=== PATIENT | male | born 1940 | race Caucasian/White ===

== ENCOUNTER → 2017-03-12 | Outpatient (CLI) | payer MEDICARE, BC ==
[2015-08-18 15:00] VITALS: BP 144/78
[~2017-03-12] MED LIST: ALPR0.5T PO; ALPR1TAB PO; ASPI-482 PO; CALC-53 PO; CALC-67 PO; CARV3.122 PO; CLOP75TA27 PO; FAMO-63 PO; FAMO20TA5 PO; HYDR-965 PO; IBUP-1007 PO; IBUP-1060 PO; ISOS30TA17 PO; ISOS30TA4 PO; LORA10CA PO; LORA10TA68 PO; LOSA25TA4 PO; NITR0.4T SL; NITR0.4T6 SL; PANT40TA5 PO; SIMV10TA PO; VITA1CAP PO; WARF6TAB49 PO; WARF6TAB7 PO; WARF7.5T48 PO; WARF7.5T6 PO
--- NOTE | 2017-03-12 13:48 | CARD ---
APPROVED REPORT EXAM: Two-dimensional and M-mode echocardiogram with Doppler and color Doppler. Other Information Quality : Average Rhythm : NSR INDICATION Atrial Fibrillation 2D DIMENSIONS RVDd3.1 (2.9-3.5cm)Left Atrium(2D)3.9 (1.6-4.0cm) IVSd1.3 (0.7-1.1cm)Aortic Root(2D)2.9 (2.0-3.7cm) LVDd4.2 (3.9-5.9cm)LVOT Diameter2.2 (1.8-2.4cm) PWd1.3 (0.7-1.1cm)LVDs2.8 (2.5-4.0cm) FS (%) 32.6 %SV47.2 ml LVEF(%)61.3 (>50%) Aortic Valve AoV Peak Hitesh.130.2cm/sAoV VTI26.3cm AO Peak GR.6.8mmHgLVOT Peak Hitesh.95.4cm/s LVOT VTI 22.41cmAO Mean GR.3mmHg MICHAELA (VMAX)2.23ay8OZN (VTI)3.12cm2 AI P 1/2 Kzrg162jd Mitral Valve MV E Eagsjnrs52.8cm/sMV E Peak Gr.116mmHg MV DECEL MZBI872pmHR A Ohhyygcc14.7cm/s MV YBI67wyH/A Ratio1.0 MV A Ktolgcau463swFKW (PHT)3.70cm2 TDI E/Lateral E'8.9E/Medial E'11.3 Pulmonary Valve PV Peak Sietmdbn358.1cm/sPV Peak Grad.4mmHg RVOT VTI19.8cm Tricuspid Valve TR P. Azmtetcr999tu/sRAP XKWREPVV2xzYb TR Peak Gr.19ljVzMJWC16ejUv Pulmonary Vein S1 Zmpijxcj24.3cm/sD2 Jdsyotrt68.1cm/s LEFT VENTRICLE The left ventricle is normal size. There is borderline to mild concentric left ventricular hypertroph y. Left ventricle systolic function is normal. The Ejection Fraction is 60-65%. There is normal LV se gmental wall motion. The left ventricular diastolic function and filling is normal for age. There is no ventricular septal defect visualized. RIGHT VENTRICLE The right ventricle is normal size. The right ventricular systolic function is normal. ATRIA The left atrium size is normal. The right atrium size is normal. The interatrial septum is intact wit h no evidence for an atrial septal defect or patent foramen ovale as noted on 2-D or Doppler imaging. AORTIC VALVE The aortic valve is calcified but opens well. The aortic valve is trileaflet. Doppler and Color Flow revealed mild aortic regurgitation. There is no significant aortic valvular stenosis. MITRAL VALVE The mitral valve is normal in structure and function. There is no mitral valve stenosis. Doppler and Color Flow revealed mild mitral regurgitation. TRICUSPID VALVE The tricuspid valve is normal in structure and function. Doppler and Color Flow revealed mild tricusp id regurgitation. There is no tricuspid valve stenosis. PULMONIC VALVE The pulmonic valve is not well visualized. Doppler and Color Flow revealed no pulmonic valvular regur gitation. There is no pulmonic valvular stenosis. GREAT VESSELS The aortic root is normal in size. Normal pulmonary venous flow (Doppler). The IVC is normal in size and collapses >50% with inspiration. PERICARDIAL EFFUSION There is no evidence of significant pericardial effusion. Critical Notification Critical Value: No <Conclusion> Left ventricle systolic function is normal. The Ejection Fraction is 60-65%. There is normal LV segmental wall motion. Mild aortic regurgitation. Mild mitral regurgitation. Mild tricuspid regurgitation. There is no evidence of significant pericardial effusion.
== END | disposition home or self-care (01) ==
LOC: ECHO 12:33
PROVIDERS: ATTEND Internal Medicine Cardiovascular Disease
DX: I48.0 Paroxysmal atrial fibrillation (principal); I08.3 Combined rheumatic disorders of mitral, aortic and tricuspid valves
CPT/HCPCS: 93306

== ENCOUNTER → 2017-08-27 | Day surgery (SDC) | payer MEDICARE, BC ==
[~2017-08-27] MED LIST changes: +CALC-31 PO; -CALC-67 PO; -CLOP75TA27 PO; +CLOP75TA57 PO; -ISOS30TA17 PO; +ISOS30TA19 PO; +IV RINGERS,LACTATED 1000ML 1,000 ML IV SCH; +LIDOCAINE 1% PF 2 ML VIAL. ID PRN; +LIDOCAINE 2% PF Vial for OR 5 ML VIAL. ONE; +MIDAZOLAM HCL/PF 2 MG/2 ML VIAL. IV PRN; +NITR0.4T22 SL; -NITR0.4T6 SL; +PROPOFOL 20 ML IV ONE; +fentaNYL PF VIAL 100 MCG/2 ML VIAL IV PRN
[2017-08-27 13:30] VITALS: BP 130/64
--- NOTE | 2017-08-28 10:47 | PATHOLOGY ---
PATHOLOGY REPORT * * * * * * * * FINAL DIAGNOSIS: A. Colonic mucosa "transverse colon polyp biopsy" - Tubular adenoma. - There is no evidence of high-grade dysplasia or malignancy. B. Colonic mucosa "descending colon polyp biopsy": - Tubular adenoma. - There is no evidence of high-grade dysplasia or malignancy. C. Colonic mucosa "sigmoid colon polyp biopsy": - Hyperplastic polyp. - There is no evidence of adenomatous change, high-grade dysplasia or malignancy. (SHA:pit; 08/28/2017) REPORT ELECTRONICALLY SIGNED BY: Kirill De Oliveira M.D. DATE/TIME: 08/28/2017 10:47 * * * * * * * * GROSS PATHOLOGY: A. Received in formalin labeled "Fausto Andersen, transverse colon polyp, BX," is a segment of trivedi soft tissue measuring 0.5 cm in maximum dimension. The specimen is submitted entirely in cassette A1. B. Received in formalin labeled "Fausto Andersen, descending colon polyp," are 2 segments of trivedi soft tissue measuring 0.6 x 0.5 x 0.5 cm in aggregate dimensions and ranging from 0.3 to 0.5 cm in maximum dimension. The specimen is submitted entirely in cassette B1. C. Received in formalin labeled "Fausto Andersen, sigmoid colon polyp," is a segment of trivedi soft tissue measuring 0.4 cm in maximum dimension. The specimen is submitted entirely in cassette C1. (TSD; 08/27/2017) INITIAL CPT CODE(S): A; 32665 B; 48935 C; 24867 Professional services performed [place] [address] Technical services performed by [facility] at [address] [place] [address], [facility] [address] [address]. SPECIMEN(S) RECEIVED: A.Transverse colon polyp B.Descending colon polyp C.Sigmoid colon polyp CLINICAL HISTORY: Colon screening; polyps PATIENT: FAUSTO ANDERSEN /AGE: 11 1940 (Age: 76) PATIENT #: [id number] ALT CASE #: SPECIMEN COLLECTION DATE: 08/27/2017 SPECIMEN RECEIVED DATE: 08/27/2017 [facility] - [address] [place] [address] - PHONE: [phone] * * * END OF REPORT * * *
== END | disposition home or self-care (01) ==
LOC: ENDOS 11:11
PROVIDERS: ATTEND Internal Medicine Gastroenterology
DX: D12.3 Benign neoplasm of transverse colon (principal); D12.4 Benign neoplasm of descending colon; D12.5 Benign neoplasm of sigmoid colon; K64.0 First degree hemorrhoids; I48.91 Unspecified atrial fibrillation; I10 Essential (primary) hypertension; E78.00 Pure hypercholesterolemia, unspecified; M19.91 Primary osteoarthritis, unspecified site; F41.9 Anxiety disorder, unspecified; Z87.01 Personal history of pneumonia (recurrent); Z90.49 Acquired absence of other specified parts of digestive tract; Z87.442 Personal history of urinary calculi; Z88.6 Allergy status to analgesic agent; Z88.0 Allergy status to penicillin; Z88.2 Allergy status to sulfonamides
CPT/HCPCS: 45385; 88305; J2704; J2001

== ENCOUNTER → 2018-04-05 | Outpatient (CLI) | payer MEDICARE, BC ==
[2018-04-05] MEDS: REGADENOSON 0.4 MG/5 ML DISP.SYRIN. IV (11:14)
== END | disposition home or self-care (01) ==
LOC: NM 09:05
DX: I25.10 Atherosclerotic heart disease of native coronary artery without angina pectoris (principal); I10 Essential (primary) hypertension; E78.5 Hyperlipidemia, unspecified; E78.00 Pure hypercholesterolemia, unspecified; I25.2 Old myocardial infarction; Z87.442 Personal history of urinary calculi
CPT/HCPCS: 78452; 93017; 96374; 96375; 96376; A9500; J2785

== ENCOUNTER 2019-02-01 11:53 | Inpatient (IN) | payer MEDICARE, BC ==
[~2019-02-01] VITALS: Ht 170.2 cm; Wt 8.8 kg
[~2019-02-01 11:53] MED LIST changes: +CARV3.1210 PO; -CARV3.122 PO; +HYDR-3165 PO; -HYDR-965 PO; -IV RINGERS,LACTATED 1000ML 1,000 ML IV SCH; -LIDOCAINE 1% PF 2 ML VIAL. ID PRN; -LIDOCAINE 2% PF Vial for OR 5 ML VIAL. ONE; -LOSA25TA4 PO; +LOSA25TA54 PO; -MIDAZOLAM HCL/PF 2 MG/2 ML VIAL. IV PRN; -PROPOFOL 20 ML IV ONE; +WARF6TAB47 PO; -WARF6TAB7 PO; +WARF7.5T45 PO; -WARF7.5T6 PO; -fentaNYL PF VIAL 100 MCG/2 ML VIAL IV PRN
[2019-02-01 12:48] VITALS: BP 175/75
[2019-02-01 15:01] VITALS: BP 138/57
[2019-02-01] MEDS ORDERED: IOHEXOL 300 MG/ML 100ML VIAL. ONE ×3 (15:45→17:04)
[2019-02-01] MEDS ORDERED: LIDOCAINE 1% PF 2 ML VIAL. ONE (15:45)
[2019-02-01] MEDS ORDERED: MIDAZOLAM HCL/PF 2 MG/2 ML VIAL. ONE ×2 (15:52→16:37)
[2019-02-01] MEDS ORDERED: HEPARIN for IV BOLUS 10,000 UNIT/10 ML VIAL. ONE (15:52)
[2019-02-01] MEDS ORDERED: NITROGLYCERIN 200 MCG/2 ML SYRINGE FOR CATH/VASC LAB. ONE ×2 (15:52→17:07)
[2019-02-01] MEDS ORDERED: fentaNYL PF VIAL 100 MCG/2 ML VIAL ONE ×2 (15:52→16:37)
[2019-02-01] MEDS ORDERED: VERAPAMIL 5 MG/2 ML VIAL. ONE (15:52)
[2019-02-01] MEDS ORDERED: BIVALIRUDIN 250 MG VIAL. IV ONE ×2 (16:16→16:30)
[2019-02-01] MEDS ORDERED: fentaNYL PF VIAL 100 MCG/2 ML VIAL IV ONE (16:30)
[2019-02-01] MEDS ORDERED: MIDAZOLAM HCL/PF 2 MG/2 ML VIAL. IV ONE (16:30)
[2019-02-01] MEDS ORDERED: CONTRAST GIVEN. MC PRN (16:30)
[2019-02-01] MEDS ORDERED: VERAPAMIL 5 MG/2 ML VIAL. IART ONE (16:30)
[2019-02-01] MEDS ORDERED: NITROGLYCERIN 200 MCG/2 ML SYRINGE FOR CATH/VASC LAB. IART ONE (16:30)
[2019-02-01] MEDS ORDERED: IOHEXOL 300 MG/ML 100ML VIAL. IART ONE (16:30)
[2019-02-01] MEDS ORDERED: HEPARIN for IV BOLUS 10,000 UNIT/10 ML VIAL. IART ONE (16:30)
[2019-02-01] MEDS ORDERED: LIDOCAINE 1% PF 2 ML VIAL. INJ ONE (16:30)
[2019-02-01] MEDS ORDERED: LIDOCAINE 1% Multi-Dose 20 ML VIAL. ONE (16:43)
[2019-02-01] MEDS ORDERED: NITROGLYCERIN 200 MCG/2 ML SYRINGE FOR CATH/VASC LAB. ICAR ONE (17:15)
[2019-02-01 17:28] VITALS: BP 151/65
[2019-02-01] MEDS ORDERED: LIDOCAINE 1% Multi-Dose 20 ML VIAL. INJ ONE (17:30)
[2019-02-01] MEDS ORDERED: IV 1/2 NORMAL SALINE 1,000 ML IV SCH (17:34)
--- NOTE | 2019-02-01 17:34 | PDOC ---
MODERATE SEDATION ASSESSMENT RISKS/ALTERNATIVES Risks/Alternatives Risks and alternatives of this type of sedation and procedure discussed with: RISK/ALTERNATIVES: Patient H & P ON CHART H & P H & P on chart and reviewed for co-morbid conditions and appropriate labs. H&P ON CHART: Yes STATUS PREG STATUS ASSESSED: N/A MEDS/ALLERGIES REVIEWED Meds/Allergies Reviewed Medications and Allergies including time and route of recently administered narcotics and sedatives. MEDS/ALLERGIES REVIEWED: Yes ASA RATING ASA RATING: III AIRWAY ASSESSMENT Airway Assessment Airway patency, oral function limitations, presence of caps, crowns, dentures, partials, and ability to extend neck assessed. AIRWAY ASSESSMENT: Yes MALLAMPATI SCORE MALLAMPATI SCORE: II PRE-SEDATION ASSESSMENT PRE-SEDATION ASSESSMENT: Yes NICOLE CARIAS MD Feb 01, 2019 17:34
[2019-02-01] MEDS ORDERED: NITROGLYCERIN SUBLINGUAL 0.4 MG BOTTLE OF 25. SL PRN (17:45)
[2019-02-01] MEDS ORDERED: MORPHINE SULFATE 4 MG/ML VIAL. IV PRN (18:30)
[2019-02-01 19:25] VITALS: BP 144/90
[2019-02-01 23:00] VITALS: BP 145/69
[2019-02-02 03:15] VITALS: BP 158/67
[2019-02-02 07:00] VITALS: BP 194/84
[2019-02-02] MEDS ORDERED: ASPIRIN ENTERIC COATED 81 MG TABLET.DR. PO SCH (08:00)
[2019-02-02] MEDS ORDERED: CLOPIDOGREL BISULFATE 75 MG TABLET PO SCH (08:00)
[2019-02-02 09:01] LABS: BASO % 0 % (0-3); EOS # 0.1 x10^3/uL (0.0-0.7); EOS % 2 % (0-3); HEMATOCRIT 46.7 % (39.0-53.0); HEMOGLOBIN 15.6 g/dL (13.0-17.5); LYMPH # 0.8 x10^3/uL (1.0-4.8); LYMPH % 12 % (24-48); MEAN CORPUSCULAR HEMOGLOBIN 32 pg (25-35); MEAN CORPUSCULAR HGB CONC 34 g/dL (31-37); MEAN CORPUSCULAR VOLUME 95 fL (79-100); MONO # 0.4 x10^3/uL (0.0-1.1); MONO % 7 % (0-9); NEUT # 5.2 x10^3uL (1.8-7.7); NEUT % 80 % (31-73); PLATELET COUNT 136 x10^3/uL (140-400); RED BLOOD COUNT 4.89 x10^6/uL (4.30-5.70); RED CELL DISTRIBUTION WIDTH 14.2 % (11.5-14.5); WHITE BLOOD COUNT 6.5 x10^3/uL (4.0-11.0)
[2019-02-02 09:04] LABS: CREATININE 0.9 mg/dL (0.7-1.3); GFR 81.4; POTASSIUM 3.5 mmol/L (3.5-5.1)
--- NOTE | 2019-02-02 09:58 | NUR ---
SS following for discharge planning. SS reviewed pt chart. Pt is from home and is currently on room air. No discharge needs noted at this time. SS will continue to follow for discharge planning.
--- NOTE | 2019-02-02 10:29 | PDOC ---
JUAN BAZAN DRAFTER TOOL DESIGN 02/02/19 1029: CARDIO Progress Notes Date and Time Date of Service 02/02/2019 Time of Evaluation 1015 Subjective Subjective: No Chest Pain, No shortness of breath, No Palpitations Vitals Vitals Vital Signs Date Time Temp Pulse Resp B/P (MAP) Pulse Ox O2 Delivery O2 Flow Rate FiO2 02/02/19 07:00 97.9 72 18 194/84 (120) 95 Room Air 97.9 02/01/19 18:50 2.0 Weight Weight [ ] Stability Assessment Stability Assess.: estim. time of instab. Input and Output Intake and Output Intake and Output 02/02/19 07:00 Intake Total 300 ml Output Total 1100 ml Balance -800 ml Intake Oral 300 ml Output Urine Total 1100 ml # Voids 2 Laboratory Labs Laboratory Tests Test 02/02/19 08:40 White Blood Count 6.5 x10^3/uL (4.0-11.0) Red Blood Count 4.89 x10^6/uL (4.30-5.70) Hemoglobin 15.6 g/dL (13.0-17.5) Hematocrit 46.7 % (39.0-53.0) Mean Corpuscular Volume 95 fL (79-100) Mean Corpuscular Hemoglobin 32 pg (25-35) Mean Corpuscular Hemoglobin Concent 34 g/dL (31-37) Red Cell Distribution Width 14.2 % (11.5-14.5) Platelet Count 136 x10^3/uL (140-400) Neutrophils (%) (Auto) 80 % (31-73) Lymphocytes (%) (Auto) 12 % (24-48) Monocytes (%) (Auto) 7 % (0-9) Eosinophils (%) (Auto) 2 % (0-3) Basophils (%) (Auto) 0 % (0-3) Neutrophils # (Auto) 5.2 x10^3uL (1.8-7.7) Lymphocytes # (Auto) 0.8 x10^3/uL (1.0-4.8) Monocytes # (Auto) 0.4 x10^3/uL (0.0-1.1) Eosinophils # (Auto) 0.1 x10^3/uL (0.0-0.7) Basophils # (Auto) 0.0 x10^3/uL (0.0-0.2) Sodium Level 138 mmol/L (136-145) Potassium Level 3.5 mmol/L (3.5-5.1) Chloride Level 105 mmol/L (98-107) Carbon Dioxide Level 23 mmol/L (21-32) Anion Gap 10 (6-14) Blood Urea Nitrogen 13 mg/dL (8-26) Creatinine 0.9 mg/dL (0.7-1.3) Estimated GFR (Cockcroft-Gault) 81.4 Glucose Level 119 mg/dL (70-99) Calcium Level 8.0 mg/dL (8.5-10.1) Physical Exam HEENT: Neck Supple W Full Motion Chest: Symmetric LUNGS: Clear to Auscultation Heart: RRR (SR) Abdomen: Soft N/T Extremities: No Calf Tenderness Neurology: alert, oriented, follow commands Other Exams right groin arteriotomy site intact, no swelling or erythema, neurovascular status to bilateral LE intact. Assessment Assessment NSTEMI: S/P PCI/DEBBIE to LAD PAFIB SR HTN: controlled HLP Recommendations 1. Lipids well controlled, continue zocor 2. Encouraged cardiac rehab 3. ASA 81 plavix and coumadin DC ASA after a month 4. TTE today prior to DC 5. Follow up in 4 weeks NICOLE CARIAS MD 02/02/19 2131: CARDIO Progress Notes Assessment Assessment Patient seen and examined. Agree with VP [employer]'s assessment and plan. s/p PCI/DEBBIE to LAD yesterday, chest pain free. LCX stent patent. Continue DAPT for one month and stop aspirin after that. PAF maintaining SR. Continue warfarin for stroke prophylaxis. Follow up in one month. JUAN BAZAN APRN Feb 02, 2019 10:29 NICOLE CARIAS MD Feb 02, 2019 21:31
[2019-02-02] MEDS ORDERED: LABETALOL 20 MG/4 ML DISP.SYRIN. IVP PRN (10:30)
[2019-02-02 10:41] LABS: PROTHROMBIN TIME PATIENT 20.5 SEC (11.7-14.0)
[2019-02-02 10:57] LABS: CHOLESTEROL/HDL RATIO 2.4
[2019-02-02 11:00] VITALS: BP 149/77
--- NOTE | 2019-02-02 11:44 | HP ---
ADMIT DATE: HISTORY OF PRESENT ILLNESS: The patient is a 78-year-old male patient with a known history of coronary artery disease with a prior PCI with stent deployment to the left circumflex artery, his nuclear stress test done last year showed fixed defect and josiah-infarct ischemia; hypertension; atrial fibrillation and hyperlipidemia, who came to the Emergency Room of [facility] complaining of aching down in the sides of his both arms and mild chest pressure consistent with his prior angina. He reports significant decrease in functional capacity over the last 12 months and discomfort off and on over the last week. He stated that his discomfort occurs after exertion, but not as bad during exertion. He denies congestive symptoms, lightheadedness or syncope. He reports anxiety and increased stress that he thinks is contributing to his stress. He was admitted to [facility]. He was extensively evaluated in the Emergency Room and his EKG showed that he was in sinus rhythm with early transition, inferior wall myocardial infarction, age undetermined. No acute ischemic changes. However, his troponin has risen from 0.017 to 0.120 and therefore, a decision was made to transfer him to [facility] for cardiac catheterization if necessary and revascularization. PAST MEDICAL HISTORY: Significant for coronary artery disease, status post PCI with stent deployment; paroxysmal atrial fibrillation; hyperlipidemia; hypertension; gastroesophageal reflux disease; vertigo; varicose veins and history of pneumonia. PAST SURGICAL HISTORY: Significant for cholecystectomy, hernia repair, pyloric stenosis dilatation, basal cell carcinoma removal, prostatectomy and PCI with stent deployment. FAMILY HISTORY: Positive for cancer. SOCIAL HISTORY: He is , lives with his . He does not smoke, drink alcohol or use any recreational drugs. ALLERGIES: HE IS ALLERGIC TO PENICILLIN, SULFA DRUGS, CODEINE AND OXYCODONE. MEDICATIONS: He is on the following home medications: He is on loratadine 10 mg once a day; warfarin 6 mg, alternating with 7.5 mg; Plavix 75 mg once a day; simvastatin 10 mg at bedtime and nitroglycerin 0.4 mg sublingually every 5 minutes x 3. He is on carvedilol 3.125 mg twice a day, losartan potassium 25 mg once a day, aspirin 81 mg once a day, ibuprofen 600 mg every 6 hours as needed, alprazolam 1 mg p.o. daily and alprazolam 0.5 mg at bedtime. He is on calcium carbonate with vitamin D one tablet once a day, famotidine 20 mg 3 times a day and vitamin B complex 1 tablet once a day. REVIEW OF SYSTEMS: As per history of present illness. PHYSICAL EXAMINATION: GENERAL: On arrival to the Emergency Room, he looked well and was clearly in no apparent respiratory distress. No pallor, jaundice or cyanosis from thyromegaly. No jugular venous distention. No lower limb edema. VITAL SIGNS: His heart rate was 82, blood pressure was 155/69, temperature was 97.8, respiratory rate was 20 and oxygen saturation was 96%. HEENT: Examination of the head, eyes, ears, nose and throat showed normocephalic, atraumatic. NECK: Supple. HEART: Showed normal first and second heart sounds. No gallop, rub or murmur. CHEST: Clear to auscultation. No crepitation or rhonchi. ABDOMEN: Distended, soft and nontender. NEUROLOGIC: He was awake, alert, responding appropriately. All cranial nerves intact. He moved extremities without difficulty, ambulated without assistance or assistive devices. LABORATORY DATA: His lab work showed that his white cell count was 5200, hemoglobin was 17.6, hematocrit was 51, MCV was 95 and platelet count of 162,000. His prothrombin time was 23.3, INR of 2.4 and aPTT was 35. His serum D-dimer was less than 0.19 mg/dL. Sodium 140, potassium 3.7, chloride 106, bicarbonate 26, anion gap of 8, BUN 19, creatinine 0.9, estimated GFR was 81 mL per minute, his glucose was 123 and calcium was 8.8. Magnesium was 2.1. Total bilirubin, AST, ALT and alkaline phosphatase were normal. His CK was 89. Initial troponin was less than 0.017, second one was 0.120. His total protein was 6.6. Albumin was 3.7. Lipase was 153. His urinalysis was essentially unremarkable. Urine was clear with a pH of 6.5, specific gravity of 1.015. The urine was negative for protein. There was a small amount of glucose, negative for blood, nitrite or bilirubin. The urine was negative for leukocyte esterase. There are no rbc's, no wbc's and no bacteria. The toxic screen was negative. His chest x-ray showed no radiographic evidence of acute cardiopulmonary disease. His EKG was sinus rhythm, early transition, inferior wall myocardial infarction, age undetermined. No acute ischemic changes. ASSESSMENT AND PLAN: The patient was diagnosed with an ST-segment elevation and known 3-vessel coronary artery disease, coming with chest pain consistent with prior angina and progressive over the last year. The patient was transferred to [facility] for cardiac catheterization to evaluate for progression of coronary artery disease, hypertension, hyperlipidemia and paroxysmal atrial fibrillation. DEBRA EVANS MD DR: MARCELO/johnny JOB#: [id number] / [id number]
--- NOTE | 2019-02-02 11:48 | CARD ---
MR#: [id number] Date of Study: 02/02/2019 Ordering Physician: JUAN BAZAN, Referring Physician: DEBRA EVANS Tech: Eli Rachel BRITTANY APPROVED REPORT EXAM: Two-dimensional and M-mode echocardiogram with Doppler and color Doppler. Other Information Quality : GoodHR: 60bpm Rhythm : NSR INDICATION CAD 2D DIMENSIONS RVDd3.1 (2.9-3.5cm)Left Atrium(2D)4.3 (1.6-4.0cm) IVSd2.0 (0.7-1.1cm)Aortic Root(2D)3.0 (2.0-3.7cm) LVDd3.6 (3.9-5.9cm)LVOT Diameter2.1 (1.8-2.4cm) PWd0.8 (0.7-1.1cm)LVDs2.1 (2.5-4.0cm) FS (%) 41.1 %SV40.1 ml LVEF(%)70.0 (>50%) M-Mode DIMENSIONS Left Atrium(MM)4.47 (2.5-4.0cm)Aortic Root3.50 (2.2-3.7cm) Aortic Valve AoV Peak Hitesh.178.8cm/sAoV VTI36.7cm AO Peak GR.12.8mmHgLVOT VTI 17.82cm AO Mean GR.7mmHgAVA (VTI)1.70cm2 AI P 1/2 Hexf529lg Mitral Valve MV E Fnmgxwsk22.0cm/sMV E Peak Gr.103mmHg MV DECEL [id number] A Zwayawri43.3cm/s E/A Ratio1.1MV A Bmjlctpt576ax TDI Lateral E' P. V8.43cm/sMedial E' P. V6.24cm/s E/Lateral E'9.6E/Medial E'13.0 Tricuspid Valve TR P. Wxnusfsv577no/sRAP SPRZQNJN2qnFg TR Peak Gr.78qfGwANAS68ocDf LEFT VENTRICLE The left ventricle is normal size. Proximal septal thickening is noted. The left ventricular systolic function is normal and the ejection fraction is within normal range. The Ejection Fraction is 60-65% . There is normal LV segmental wall motion. Transmitral Doppler flow pattern is Grade I-abnormal rela xation pattern. RIGHT VENTRICLE The right ventricle is mildly dilated. There is normal right ventricular wall thickness. The right ve ntricular systolic function is normal. ATRIA The left atrium is mildly dilated. The right atrium size is normal. The interatrial septum is intact with no evidence for an atrial septal defect or patent foramen ovale as noted on 2-D or Doppler imagi ng. AORTIC VALVE The aortic valve is trileaflet. The aortic valve is mildly calcified. Doppler and Color Flow revealed mild to moderate aortic regurgitation. There is no significant aortic valvular stenosis. MITRAL VALVE The mitral valve is thickened but opens well. There is no evidence of mitral valve prolapse. There is no mitral valve stenosis. Doppler and Color-flow revealed mild mitral regurgitation. TRICUSPID VALVE The tricuspid valve is normal in structure and function. Doppler and Color Flow revealed trace to mil d tricuspid regurgitation. The PA pressure was estimated at 33 mmHg. There is no tricuspid valve prol apse or vegetation. There is no tricuspid valve stenosis. PULMONIC VALVE Doppler and Color Flow revealed no pulmonic valvular regurgitation. There is no pulmonic valvular pérez nosis. GREAT VESSELS The aortic root is normal in size. The ascending aorta is normal in size. The IVC is normal in size a nd collapses >50% with inspiration. PERICARDIAL EFFUSION There is no evidence of significant pericardial effusion. Critical Notification Critical Value: No <Conclusion> The left ventricular systolic function is normal and the ejection fraction is within normal range. Th e Ejection Fraction is 60-65%. There is normal LV segmental wall motion. Doppler and Color Flow revealed mild to moderate aortic regurgitation. Doppler and Color Flow revealed trace to mild tricuspid regurgitation. The PA pressure was estimated at 33 mmHg. Signed by : Sriram Murrell, Electronically Approved : 02/02/2019 11:48:04
--- NOTE | 2019-02-02 15:58 | NUR ---
Discharge Note: JARRET DINH Discharge instructions and discharge home medications reviewed with Patient and a copy given. All questions have been answered and understanding verbalized. The following instructions and handouts were given: Discontinued iv lines: catheter intact. Patient discharged home with spouse and daughter ambulating under own power.
[2019-02-02] MEDS ORDERED: CARVEDILOL 3.125 MG TABLET. PO SCH (16:00)
--- NOTE | 2019-02-02 17:26 | CARD ---
MR#: [id number] Date of Study: 02/01/2019 Ordering Physician: DEBRA EVANS, Referring Physician: DEBRA EVANS Tech: RT Adiel (R) APPROVED REPORT Technologist: RT Adiel (R) Nurse: Grace Woodard Procedure(s) performed: 1. Left heart catheterization and selective coronary angiography 2. Successful, takes PCI/drug eluting stent placement to the left anterior descending artery Moderate Sedation: 84 min INDICATION The indication(s) include : non-STEMI . PROCEDURE NARRATIVE After explaining the risks, benefits and alternative options, informed consent was obtained from ewelina ent. Patient was brought to the cardiac Engineering Group Leader and right wrist was prepped and draped in the usual fashion after confirming a positive modified James's test. Arterial access was obtained in the righ t radial artery and a 6 Swiss sheath was inserted. After initial attempts to engage the coronary art eries with 6 Swiss Neeraj catheter were unsuccessful, the left main coronary artery was engaged with a 5 Swiss JL 3.5 catheter and selective angiography was performed. 5 Swiss JR4 catheter was used t o perform selective angiography of the right coronary artery. LVEDP and transaortic gradients remeasu red. The following findings were noted. FINDINGS 1. Hemodynamics: Left ventricular end-diastolic pressure of 20 mmHg. No pullback gradient across th e aortic valve. 2. Coronary angiography: a. The left main coronary artery arose from the left sinus of Valsalva, gave rise to the left anteri or descending and left circumflex arteries and showed calcified 30% stenosis involving the distal seg ment. b. The left anterior descending artery showed 90% stenosis in the proximal segment. The very distal segment showed 70-80% stenosis which was described in prior cardiac catheterization. c. The left circumflex artery showed 50% stenosis in the ostial segment, patent stent in the proxima l segment. The first obtuse marginal branch which is a small-caliber vessel showed 90% stenosis in th e ostial segment. d. The right coronary artery was a small-caliber vessel that showed chronic total occlusion in the m idsegment with bridging collaterals. This was described in prior cardiac catheterization. INTERVENTION Initial attempts to engage the left main coronary artery using 6 Swiss XB 3.5 guide catheter were un successful due to severe radial artery spasm. Hence a decision was made to switch access to right com mon femoral artery. Hemostasis in the right radial artery was achieved using TR band. 20 mL of 2% lid ocaine was infiltrated into the skin and subcutaneous tissues of the right groin for local anesthesia . Arterial access was obtained in the right common femoral artery and 6 Swiss sheath was inserted. 6 Swiss XB 3.5 guide catheter was used to engage the left main coronary artery. The stenosis in the p roximal segment of the left anterior descending artery was crossed with a 0.014 inch [employer] Pro water guidewire. Initial attempts to advance balloon across the distal segment of the left main coronary ar rodney was unsuccessful due to calcification. With the help of backup support from 6 Swiss guide liner inner catheter, a 2.5 x 8 mm trek balloon was advanced and the stenosis predilated. This was then di lated with 3.0 x 12 mm trek balloon following which this was successfully treated with a 3.5 x 15 mm Xience Alpine drug-eluting stent. Follow-up angiography showed resolution of the stenosis to 0% with [place]-3 distal flow. Patient tolerated the procedure well. Hemostasis in the right groin was achieved using Angio-Seal. There were no immediate complications. Conclusion 1. 90% stenosis involving the proximal segment of the left anterior descending artery. The previously placed stent in the left circumflex artery was patent. The right coronary artery was a small-caliber vessel that showed chronic total occlusion with bridging collaterals and was described in prior card iac catheterization. 2. Successful PCI/drug eluting stent placement to the left anterior descending artery Recommendations 1. Aspirin 81 mg daily 2. Plavix 75 mg daily for preferably one year 3. Cardiovascular risk factor modification Signed by : Kelvin Mejia, Electronically Approved : 02/02/2019 17:25:26
--- NOTE | 2019-02-02 20:23 | DS ---
DATE OF DISCHARGE: 02/02/2019 HOSPITAL COURSE: The patient in a 78-year-old male patient who was seen originally at the [facility] with a complaint of chest pain described as aching down to the sides of both arms and mild chest pressure consistent with his prior angina. He reports significant decrease in his functional capacity. His initial troponin was less than 0.017, have risen to 0.130 and therefore, decision was made to transfer him to [facility]. He underwent cardiac catheterization and drug-eluting stent placement to left anterior descending artery. Postprocedure, he remained hemodynamically stable and decision was made to discharge him home to continue on his current medications. He is to stop aspirin in 1 months' time. He should avoid ibuprofen. PHYSICAL EXAMINATION: GENERAL: When I saw him this afternoon, he looked well and was clearly in no apparent respiratory distress. No pallor, jaundice, cyanosis, or thyromegaly. No jugular venous distension. No lower limb edema. VITAL SIGNS: His heart rate was 70, blood pressure was 149/77, temperature was 98.2, respiratory rate was 18, and oxygen saturation was 96%. HEAD, EYES, EARS, NOSE AND THROAT: Normocephalic, atraumatic. NECK: Supple. HEART: Showed normal first and second heart sounds. No gallop, rub or murmur. CHEST: Clear to auscultation. No crepitation or rhonchi. ABDOMEN: Distended, soft, and nontender. No guarding or rigidity. No organomegaly. All hernial orifices intact. Bowel sounds normal. NEUROLOGIC: He is awake, alert, responding appropriately. All cranial nerves intact. EXTREMITIES: He moves extremities without difficulty. He ambulates without assistance or assistive devices. LABORATORY DATA: This morning showed serum sodium of 138, potassium 3.5, chloride 105, bicarbonate 23, anion gap of 10, BUN 13, creatinine 0.9, estimated GFR was 81 mL per minute, glucose 119, calcium was 8. His serum triglyceride was 86, total cholesterol 110, LDL was 47, VLDL was 17, HDL was 46 and the ratio was 2.4. His white cell count was 6500, hemoglobin 15.6, hematocrit 46.7, MCV 95, and platelet count of 136,000. His prothrombin time was 20.5, INR 1.8. Has had an echocardiogram done this morning, which showed that his left ventricular systolic function was normal, ejection fraction was within normal range. Ejection fraction was 60-65%, normal left ventricular segmental wall motion. Doppler and color flow revealed [id number]-qt-[id number] aortic regurgitation. Doppler and color flow revealed xksom-ws-vsxd tricuspid regurgitation. The pulmonary artery pressure was estimated at 33 mmHg. DISCHARGE MEDICATIONS: He was discharged home to continue on following medications: Alprazolam for Xanax 1 mg daily, alprazolam 0.5 mg at bedtime, aspirin 81 mg once a day, calcium carbonate with vitamin D one tablet once a day, carvedilol 3.125 mg twice a day with food, Plavix 75 mg once a day, famotidine 20 mg 3 times a day, loratadine 10 mg daily, losartan potassium 25 mg once a day, nitroglycerin 0.4 mg sublingually every 5 minutes x 3, simvastatin for Zocor 10 mg at bedtime, vitamin B complex 1 tablet once a day, Coumadin 7 mg 4 times a week and Coumadin 7.5 mg every Thursday, Thursday, Thursday. The patient was advised to discontinue his ibuprofen. FINAL DISCHARGE DIAGNOSES: 1. Coronary artery disease, status post percutaneous coronary intervention with drug-eluting stent to the left anterior descending. 2. Paroxysmal atrial fibrillation. 3. Hyperlipidemia. 4. Hypertension. 5. Gastroesophageal reflux disease. 6. Vertigo. DEBRA EVANS MD DR: MARCELO/johnny JOB#: [id number] / [id number]
[2019-02-03] MEDS ORDERED: LOSARTAN POTASSIUM 25 MG TABLET. PO SCH (09:00)
== END 2019-02-02 14:25 | disposition home or self-care (01) | DRG 246 ==
LOC: CCL 11:53 → 2 NORTH 15:02
PROVIDERS: ADMIT Internal Medicine Cardiovascular Disease; ATTEND Internal Medicine
PROC: 4A023N7 Measurement of Cardiac Sampling and Pressure, Left Heart, Percutaneous Approach (ICD-10-PCS; principal; 2019-02-02)
PROC: 027034Z Dilation of Coronary Artery, One Artery with Drug-eluting Intraluminal Device, Percutaneous Approach (ICD-10-PCS; 2019-02-02)
PROC: B2111ZZ Fluoroscopy of Multiple Coronary Arteries using Low Osmolar Contrast (ICD-10-PCS; 2019-02-02)
DX: I21.4 Non-ST elevation (NSTEMI) myocardial infarction (principal); I50.33 Acute on chronic diastolic (congestive) heart failure; I48.0 Paroxysmal atrial fibrillation; I25.10 Atherosclerotic heart disease of native coronary artery without angina pectoris; E78.5 Hyperlipidemia, unspecified; K21.9 Gastro-esophageal reflux disease without esophagitis; F41.9 Anxiety disorder, unspecified; Z88.6 Allergy status to analgesic agent; Z95.5 Presence of coronary angioplasty implant and graft; Z88.0 Allergy status to penicillin; Z88.2 Allergy status to sulfonamides; Z87.01 Personal history of pneumonia (recurrent); Z85.828 Personal history of other malignant neoplasm of skin; Z90.49 Acquired absence of other specified parts of digestive tract; Z90.79 Acquired absence of other genital organ(s); Z79.01 Long term (current) use of anticoagulants; Z79.899 Other long term (current) drug therapy; Z79.02 Long term (current) use of antithrombotics/antiplatelets; I11.0 Hypertensive heart disease with heart failure
CPT/HCPCS: 92928; 93458; G0269; 36415; 80048; 80061; 85025; 85610; 93306; 99152; 99153; C1713; C1725; C1760; C1769; C1887; C1892; J0583; J1644; J2250; J3010; J3490; Q9967; C1771

== ENCOUNTER → 2019-12-29 | Outpatient (CLI) | payer MEDICARE, BC ==
[~2019-12-29] MED LIST changes: -NITR0.4T SL; +NITR0.4T24 SL; -PANT40TA5 PO; +PANT40TA77 PO
--- NOTE | 2019-12-29 10:10 | CARD ---
MR#: [id number] Date of Study: 12/29/2019 Ordering Physician: NICOLE CARIAS, Referring Physician: NICOLE CARIAS, Tech: Willie Tellez RDCS APPROVED REPORT EXAM: Two-dimensional and M-mode echocardiogram with Doppler and color Doppler. Other Information Quality : GoodHR: 63bpm Rhythm : NSR INDICATION CAD RISK FACTORS Hypertension Hyperlipidemia 2D DIMENSIONS RVDd3.6 (2.9-3.5cm)IVSd1.4 (0.7-1.1cm) Aortic Root(2D)3.0 (2.0-3.7cm)LVDd3.8 (3.9-5.9cm) LVOT Diameter2.1 (1.8-2.4cm)PWd1.3 (0.7-1.1cm) LVDs2.7 (2.5-4.0cm)FS (%) 28.5 % SV35.1 mlLVEF(%)55.7 (>50%) Aortic Valve AoV Peak Hitesh.159.5cm/Katerin Peak GR.10.2mmHg LVOT Peak Hitesh.83.7cm/sAVA (VMAX)1.85cm2 AI P 1/2 [id number] Mitral Valve MV E Psspeylq78.9cm/sMV DECEL IOMW750sk MV A Chdxocan29.6cm/sE/A Ratio0.7 MV A [id number] Pulmonary Valve PV Peak Sigxrigo087.4cm/s Tricuspid Valve TR P. Rjpmxfkp362pn/sRAP HZMGTCAS7ejEj TR Peak Gr.41ffGcJBVR43ohFj Pulmonary Vein S1 Kovjcola62.1cm/sD2 Fgnvjghr70.2cm/s PVa [id number] LEFT VENTRICLE The left ventricle is normal size. There is mild concentric left ventricular hypertrophy. The left ve ntricular systolic function is normal and the ejection fraction is within normal range. The Ejection Fraction is 60-65%. There is normal LV segmental wall motion. Transmitral Doppler flow pattern is nor mal for age. There is no ventricular septal defect visualized. RIGHT VENTRICLE The right ventricle is normal size. The right ventricular systolic function is normal. ATRIA The left atrium size is normal. The right atrium size is normal. The interatrial septum is intact wit h no evidence for an atrial septal defect or patent foramen ovale as noted on 2-D or Doppler imaging. AORTIC VALVE The aortic valve is mildly thickened but opens well. Doppler and Color Flow revealed mild to moderate aortic regurgitation. There is no significant aortic valvular stenosis. MITRAL VALVE The mitral valve is normal in structure and function. There is no mitral valve stenosis. Doppler and Color-flow revealed mild mitral regurgitation. TRICUSPID VALVE The tricuspid valve is normal in structure and function. Doppler and Color Flow revealed trace tricus pid regurgitation. PA pressure is estimated at 25 mmHg. There is no tricuspid valve stenosis. PULMONIC VALVE The pulmonary valve is normal in structure and function. Doppler and Color Flow revealed no pulmonic valvular regurgitation. There is no pulmonic valvular stenosis. GREAT VESSELS The aortic root is normal in size. The ascending aorta is normal in size. The IVC is normal in size a nd collapses >50% with inspiration. PERICARDIAL EFFUSION There is no pleural effusion. There is no evidence of significant pericardial effusion. Critical Notification Critical Value: No <Conclusion> The left ventricular systolic function is normal and the ejection fraction is within normal range. Th e Ejection Fraction is 60-65%. There is normal LV segmental wall motion. Doppler and Color Flow revealed mild to moderate aortic regurgitation. Signed by : Sriram Murrell, Electronically Approved : 12/29/2019 10:09:41
== END | disposition home or self-care (01) ==
LOC: ECHO 08:23
PROVIDERS: ATTEND Internal Medicine Cardiovascular Disease
DX: I08.0 Rheumatic disorders of both mitral and aortic valves (principal); I11.9 Hypertensive heart disease without heart failure
CPT/HCPCS: 93306

== ENCOUNTER → 2021-04-02 | Outpatient (CLI) | payer MEDICARE, BC ==
[~2021-04-02] MED LIST changes: -ISOS30TA4 PO; +ISOS30TA68 PO; +LIDOCAINE 2% PF 5 ML VIAL. ONE; +PROPOFOL 10 MG/ML (20ML) VIAL. IV ONE; +REGADENOSON 0.4 MG/5 ML DISP.SYRIN. IV ONE; +fentaNYL PF VIAL 100 MCG/2 ML VIAL ONE
--- NOTE | 2021-04-02 10:56 | RAD ---
MR#: [id number] Date of Study: 04/02/2021 Ordering Physician: NICOLE CARIAS, Referring Physician: NICOLE CARIAS, Tech: Zohaib Mckee MBA, RDMS, RVT, RDCS, RTR APPROVED REPORT Patient Location: OUT-PATIENT Indications Rest Pain:Bilaterally VELOCITY AND DOPPLER WAVEFORM ANALYSIS RIGHT cm/secWaveformSeverity LEFT cm/secWaveform Severity dCFA 111.0BiphasicdCFA 116.0Biphasic Prof Fem Art. 62.0BiphasicProf Fem Art. 53.0Biphasic Fem Art Prox. 113.0BiphasicFem Art Prox. 104.0Biphasic Fem Art Mid. 139.0BiphasicFem Art Mid. 125.0Biphasic Fem Art Dist. 102.0BiphasicFem Art Dist. 95.0Biphasic Pop Art(Fossa) 79.0BiphasicPop Art(AK) 76.0Biphasic FITNESS AND WELLNESS MANAGER Prox. 112.0BiphasicPTA Prox. 106.0Biphasic FITNESS AND WELLNESS MANAGER Dist. 114.0BiphasicPTA Dist. 93.0Biphasic Per Art Mid. 59.0BiphasicPer Art Mid. 52.0Biphasic JOSE A Prox. 186.0BiphasicATA Prox. 81.0Biphasic DPA 44BiphasicDPA 33Biphasic Findings Grayscale lesions of the bilateral lower extremity arterial vessels demonstrates moderate diffuse ath erosclerosis. Bilaterally from the common femoral artery to the popliteal segment there are biphasic waveforms with out any focal obstruction noted. Bilaterally there is three-vessel runoff with likely 50% stenosis involving the anterior and posterio r tibial vessels on the right side. Critical Notification Critical Value: No <Conclusion> 1. No significant above-knee disease bilaterally 2. Probable moderate disease involving the right posterior tibial and anterior tibial vessels. Signed by : Sriram Murrell, Electronically Approved : 04/02/2021 10:56:01
--- NOTE | 2021-04-02 11:16 | RAD ---
MR#: [id number] Date of Study: 04/02/2021 Ordering Physician: NICOLE CARIAS, Referring Physician: NICOLE CARIAS, Tech: Zohaib Mckee MBA, RDMS, RVT, RDCS, RTR APPROVED REPORT Patient Location : OUT-PATIENT Indications Lower Extremity Edema : Bilateral Findings Bilateral limited grayscale images of the saphenofemoral junctions are grossly unremarkable. The rig ht great saphenous vein measures 4.5 cm and the left great saphenous vein measures 4.6 mm. Bilateral greater and lesser saphenous veins did not reveal any evidence of reflux. Critical Notification Critical Value: No <Conclusion> 1. No significant reflux in the bilateral greater and lesser saphenous vein Signed by : Sriram Murrell, Electronically Approved : 04/02/2021 11:15:49
--- NOTE | 2021-04-03 10:21 | CARD ---
MR#: [id number] Date of Study: 04/02/2021 Ordering Physician: NICOLE CARIAS, Referring Physician: Christy PHIPPS: Lucretia Lares [facility] APPROVED REPORT EXAM: Two-dimensional and M-mode echocardiogram with Doppler and color Doppler. Other Information Quality : GoodHR: 63bpm Rhythm : NSR INDICATION Cardiac Disease: CAD RISK FACTORS Hypertension Hyperlipidemia 2D DIMENSIONS RVDd3.8 (2.9-3.5cm)Left Atrium(2D)3.6 (1.6-4.0cm) IVSd1.2 (0.7-1.1cm)Aortic Root(2D)2.8 (2.0-3.7cm) LVDd4.6 (3.9-5.9cm)LVOT Diameter2.1 (1.8-2.4cm) PWd1.5 (0.7-1.1cm)LVDs3.2 (2.5-4.0cm) FS (%) 29.7 %SV54.2 ml LVEF(%)56.9 (>50%) Aortic Valve AoV Peak Hitesh.188.8cm/Katerin Peak GR.14.3mmHg AI P 1/2 Stcm982ej Mitral Valve MV E Hybpcrlz85.2cm/sMV DECEL QQWN620pk MV A Bhevpipd70.3cm/sE/A Ratio0.8 Pulmonary Valve PV Peak Ewhupmrq267.0cm/s Tricuspid Valve TR P. Dbxeipyr024dl/sRAP HCPCLJPW6uiBd TR Peak Gr.82wcEvZZNU97chYg Pulmonary Vein S1 Igohwsyk35.0cm/sD2 Vgdytasy33.7cm/s PVa mfiodrdc474ovpn LEFT VENTRICLE The left ventricle is normal size. There is mild concentric left ventricular hypertrophy. The left ve ntricular systolic function is normal. Left ventricular ejection fraction is 55 to 60%. No regional w all motion abnormalities noted. Tissue Doppler imaging reveals abnormal left ventricular diastolic dy sfunction. No left ventricle thrombus noted on this study. There is no ventricular septal defect visu alized. There is no left ventricular aneurysm. There is no mass noted in the left ventricle. RIGHT VENTRICLE The right ventricle is normal size. There is normal right ventricular wall thickness. The right ventr icular systolic function is normal. ATRIA The left atrium size is normal. The right atrium size is normal. The interatrial septum is intact wit h no evidence for an atrial septal defect or patent foramen ovale as noted on 2-D or Doppler imaging. AORTIC VALVE The aortic valve is normal in structure and function. Doppler and Color Flow revealed mild aortic reg urgitation. There is no aortic valvular stenosis. There is no aortic valvular vegetation. MITRAL VALVE The mitral valve is normal in structure and function. There is no evidence of mitral valve prolapse. There is no mitral valve stenosis. Doppler and Color-flow revealed mild mitral regurgitation. TRICUSPID VALVE The tricuspid valve is normal in structure and function. Doppler and Color Flow revealed mild tricusp id regurgitation. PAP 32 mmHg. There is no tricuspid valve prolapse or vegetation. There is no tricus pid valve stenosis. PULMONIC VALVE The pulmonary valve is normal in structure and function. There is no pulmonic valvular regurgitation. There is no pulmonic valvular stenosis. GREAT VESSELS The aortic root is normal in size. The ascending aorta is normal in size. The pulmonary artery is nor mal. The IVC is normal in size and collapses >50% with inspiration. PERICARDIAL EFFUSION There is no pleural effusion. The pericardium appears normal. Critical Notification Critical Value: No <Conclusion> The left ventricle is normal size. The left ventricular systolic function is normal. Left ventricular ejection fraction is 55 to 60%. There is mild concentric left ventricular hypertrophy. Doppler and Color Flow revealed mild aortic regurgitation. There is no aortic valvular stenosis. Doppler and Color-flow revealed mild mitral regurgitation. Doppler and Color Flow revealed mild tricuspid regurgitation. PAP 32 mmHg. Signed by : Brent Orosco MD Electronically Approved : 04/03/2021 10:20:45
--- NOTE | 2021-04-03 11:14 | RAD ---
MR#: [id number] Date of Study: 04/02/2021 Ordering Physician: NICOLE CARIAS, Referring Physician: TONY PHIPPS Tech: ALEXANDER Moura ARRT (R) (N) APPROVED REPORT Test Type: Pharmacological Stress Nurse/Tech: Margot Mayfield R.N. Test Indications: cad Cardiac History: cad, Mi, stents, afib, htn, Medications: see copy Medical History: see ehr Resting ECG: SB Resting Heart Rate: 48 bpm Resting Blood Pressure: 135/75mmHg Pretest Chest Pain: No chest pain Nurse/Tech Notes lungs cta, heart tones regular Consent: The procedure was explained to the patient in lay terms. Informed consent was witnessed. Emmanuel eout was entered into [employer]. History and Stress Test performed by RT Devin (Jl) (N) Pharm. Details Pharmacologic stress testing was performed using 0.4mg per 5ml of regadenoson given intravenously ove r 7-10 seconds. Stress Symptoms No chest pain or symptoms.Dyspnea POST EXERCISE Reason for Termination: Infusion complete Target HR: No Max HR: 65 bpm Max Blood Pressure: 169/63mmHg Chest Pain: No. Arrhythmia: No. ST Change: No. INTERPRETATION Stress EKG Conclusion: The resting EKG shows a sinus rhythm with nonspecific T wave changes. The stress EKG shows no significant changes from baseline. No EKG evidence of stress-induced ischemia. Imaging Protocol IMAGE PROTOCOL: Rest Tc-99m/stress Tc-99m 1 day Rest: Stress: Viability: Radiopharm.Tc99m MrgumtqfbQb63x Sestamibi Dose10.4mCi 31.5mCi Img Date 04/02/2021 04/02/2021 Inj-Img Fwwn55szm. 60min. Rest Admin Site:IV - Right AntecubitalAdministrator:ALEXANDER Moura, SANTIAGO (R)(N) Stress Admin Site: IV - Right AntecubitalAdministrator: RT Eben Beltran)(N) STRESS DATA End Diast. Vol.122.0mlAv. Heart Rate52.0bpm End Syst. Vol.37.0mlCO Index BSA4.4L/min Myocardial Qrdd626.0gEject. Tqpkbhts46.0% Stress Rates Pk. Fill Rate1.59EDV/secLVtime Pk. Fill 139.65msec Pk. Empty Rate2.70ESV/secLVtime Pk. Xmlyb236.85msec 1/3 Pk. Fill1.26EDV/sec Stress Scores Regional WT0.00Summed WT2.00 Regional WM0.00Summed WM0.00 LV Perfusion The stress scans show a borderline defect in the inferior lateral wall. The rest scans no significant defects. Nuclear imaging shows a borderline reversible defect in the inferior lateral wall. Wall Motion Left ventricular ejection fraction is 56% with no regional wall motion abnormalities. LV Perf. Quant 17 Seg. SSS8.00 17 Seg. SRS4.00 17 Seg. SDS4.00 Stress Defect Extent (% LAD)0.00Rest Defect Extent (% LAD)0.00Rev. Defect Extent (% LAD)0.00 Stress Defect Extent (% LCX) 57.50Rest Defect Extent (% LCX)46.30Rev. Defect Extent (% LCX)30.00 Stress Defect Extent (% RCA)7.80Rest Defect Extent (% RCA)0.00Rev. Defect Extent (% RCA)6.70 Stress Defect Extent (% DANIELLE)14.80Rest Defect Extent (% DANIELLE)8.90Rev. Defect Extent (% DANIELLE)8.90 Conclusion 1. No EKG evidence of stress-induced ischemia. 2. Nuclear imaging shows a borderline reversible defect in the inferior lateral wall suggestive of a small area of reversible ischemia. 3. Left ventricular systolic function is 56% with no regional wall motion abnormalities. 4. Moderate to moderately low risk Lexiscan nuclear stress test. Signed by : Brent Orosco MD Electronically Approved : 04/03/2021 11:14:14
== END ==
LOC: ECHO 08:15
PROVIDERS: ATTEND Internal Medicine Cardiovascular Disease
DX: I08.3 Combined rheumatic disorders of mitral, aortic and tricuspid valves (principal); I70.203 Unspecified atherosclerosis of native arteries of extremities, bilateral legs; I25.10 Atherosclerotic heart disease of native coronary artery without angina pectoris; R60.0 Localized edema
CPT/HCPCS: 78452; 93017; 93306; 93925; 93970; A9500; J2704; J2785; J3010

== ENCOUNTER 2022-03-17 10:53 | Emergency (ER) | payer MEDICARE, BC ==
[~2022-03-17] VITALS: Ht 170.2 cm; Wt 100.0 kg
[~2022-03-17 10:53] MED LIST changes: +AMIO200T53 PO; +AMLO-186 PO; +AMLO2.5T5 PO; +APIX5TAB PO; +CARV12.511 PO; +CARV6.253 PO; -LIDOCAINE 2% PF 5 ML VIAL. ONE; -PROPOFOL 10 MG/ML (20ML) VIAL. IV ONE; -REGADENOSON 0.4 MG/5 ML DISP.SYRIN. IV ONE; +TRAZODONE; +VALS320T13 PO; -fentaNYL PF VIAL 100 MCG/2 ML VIAL ONE
[2022-03-17 11:36] LABS: BASO % 0 % (0-3); EOS # 0.1 x10^3/uL (0.0-0.7); EOS % 1 % (0-3); HEMATOCRIT 47.9 % (39.0-53.0); HEMOGLOBIN 16.5 g/dL (13.0-17.5); LYMPH # 0.8 x10^3/uL (1.0-4.8); LYMPH % 8 % (24-48); MEAN CORPUSCULAR HEMOGLOBIN 34 pg (25-35); MEAN CORPUSCULAR HGB CONC 35 g/dL (31-37); MEAN CORPUSCULAR VOLUME 99 fL (79-100); MONO # 0.6 x10^3/uL (0.0-1.1); MONO % 6 % (0-9); NEUT # 8.5 x10^3/uL (1.8-7.7); NEUT % 85 % (31-73); PLATELET COUNT 170 x10^3/uL (140-400); RED BLOOD COUNT 4.84 x10^6/uL (4.30-5.70); RED CELL DISTRIBUTION WIDTH 13.8 % (11.5-14.5)
[2022-03-17 11:52] LABS: CALCIUM 8.7 mg/dL (8.5-10.1); CREATININE 0.8 mg/dL (0.7-1.3); GFR 92.5; POTASSIUM 4.2 mmol/L (3.5-5.1)
[2022-03-17 11:56] LABS: ALBUMIN 3.1 g/dL (3.4-5.0); ALBUMIN/GLOBULIN RATIO 1.1 (1.0-1.7); TOTAL BILIRUBIN 2.3 mg/dL (0.2-1.0); TOTAL PROTEIN 5.9 g/dL (6.4-8.2)
[2022-03-17 12:04] LABS: PROTHROMBIN TIME PATIENT 16.2 SEC (11.7-14.0)
--- NOTE | 2022-03-17 12:18 | RAD ---
CT brain without contrast. HISTORY: Dizziness, fall, on Eliquis CT scan of brain was done without contrast. Sinuses are clear. A skull fracture is not identified. Th ere is no intracranial hemorrhage or subdural hematoma. There is no mass effect or shift of the midli ne. Ventricles are normal in size. There is mild diffuse atrophy. IMPRESSION: 1. No intracranial hemorrhage or acute finding noted. PQRS Compliance Statement: One or more of the following individualized dose reduction techniques were utilized for this examinat ion: 1. Automated exposure control 2. Adjustment of the mA and/or kV according to patient size 3. Use of iterative reconstruction technique Electronically signed by: José Manuel Urbano MD (03/17/2022 12:16 PM) [facility]
[2022-03-17 13:08] VITALS: BP 136/77
[2022-03-17 14:36] LABS: INFLUENZA A PATIENT NEGATIVE (NEGATIVE); INFLUENZA B PATIENT NEGATIVE (NEGATIVE)
--- NOTE | 2022-03-17 15:29 | PHYS DOC ---
Past Medical History Past Surgical History: Pacemaker Smoking Status: Never Smoker Alcohol Use: None General Adult EDM: Chief Complaint: DIZZY/LIGHT HEADED HPI: HPI: Patient is a 81 year old male who presents with nausea fatigue and dizziness. Describes the dizziness as an unsteady feeling not as the room spinning. Just a few days ago he had a pacemaker placed at our facility. He also was just started on amiodarone a few days ago. Denies any fever but has some chills. no vomiting or diarrhea. No UTI symptoms. No drainage from the wound site. No shortness of breath cough or sputum production. Review of Systems: Review of Systems: Constitutional: Denies fever. Positive for chills and dizziness Eyes: Denies change in visual acuity. [] HENT: Denies nasal congestion or sore throat. [] Respiratory: Denies cough or shortness of breath. [] Cardiovascular: Denies chest pain or edema. [] GI: Denies abdominal pain, nausea, vomiting, bloody stools or diarrhea. [] : Denies dysuria. [] Musculoskeletal: Denies back pain or joint pain. [] Integument: Denies rash. [] Neurologic: Denies headache, focal weakness or sensory changes. [] Endocrine: Denies polyuria or polydipsia. [] Lymphatic: Denies swollen glands. [] Psychiatric: Denies depression or anxiety. [] Heart Score: C/O Chest Pain: No Risk Factors: Risk Factors: DM, Current or recent (<one month) smoker, HTN, HLP, family history of CAD, obesity. Risk Scores: Score 0 - 3: 2.5% MACE over next 6 weeks - Discharge Home Score 4 - 6: 20.3% MACE over next 6 weeks - Admit for Clinical Observation Score 7 - 10: 72.7% MACE over next 6 weeks - Early Invasive Strategies Allergies: Allergies: Allergies Coded Allergies Type Severity Reaction Last Updated Verified Penicillins Allergy Severe Swelling 03/15/22 Yes Sulfa (Sulfonamide Antibiotics) Allergy Severe Swelling 08/27/17 Yes codeine Allergy Intermediate 08/27/17 Yes oxycodone Adverse Reaction Intermediate Nausea and Vomiting 08/27/17 No Physical Exam: PE: Constitutional: Well developed, well nourished, no acute distress, non-toxic appearance. [] HENT: Normocephalic, atraumatic, bilateral external ears normal, oropharynx moist, no oral exudates, nose normal. [] Eyes: PERRLA, EOMI, conjunctiva normal, no discharge. [] Neck: Normal range of motion, no tenderness, supple, no stridor. [] Cardiovascular:Heart rate regular rhythm, no murmur [] Lungs & Thorax: Bilateral breath sounds clear to auscultation [] Abdomen: Bowel sounds normal, soft, no tenderness, no masses, no pulsatile masses. [] Skin: Warm, dry, no erythema, no rash. [] Back: No tenderness, no CVA tenderness. [] Extremities: No tenderness, no cyanosis, no clubbing, ROM intact, no edema. [] Neurologic: Alert and oriented X 3, normal motor function, normal sensory function, no focal deficits noted. [] Psychologic: Affect normal, judgement normal, mood normal. [] Current Patient Data: Labs: Laboratory Tests Test 03/17/22 11:10 03/17/22 11:45 03/17/22 14:08 White Blood Count 10.0 x10^3/uL (4.0-11.0) Red Blood Count 4.84 x10^6/uL (4.30-5.70) Hemoglobin 16.5 g/dL (13.0-17.5) Hematocrit 47.9 % (39.0-53.0) Mean Corpuscular Volume 99 fL (79-100) Mean Corpuscular Hemoglobin 34 pg (25-35) Mean Corpuscular Hemoglobin Concent 35 g/dL (31-37) Red Cell Distribution Width 13.8 % (11.5-14.5) Platelet Count 170 x10^3/uL (140-400) Neutrophils (%) (Auto) 85 % (31-73) H Lymphocytes (%) (Auto) 8 % (24-48) L Monocytes (%) (Auto) 6 % (0-9) Eosinophils (%) (Auto) 1 % (0-3) Basophils (%) (Auto) 0 % (0-3) Neutrophils # (Auto) 8.5 x10^3/uL (1.8-7.7) H Lymphocytes # (Auto) 0.8 x10^3/uL (1.0-4.8) L Monocytes # (Auto) 0.6 x10^3/uL (0.0-1.1) Eosinophils # (Auto) 0.1 x10^3/uL (0.0-0.7) Basophils # (Auto) 0.0 x10^3/uL (0.0-0.2) Prothrombin Time 16.2 SEC (11.7-14.0) H Prothrombin Time INR 1.3 (0.8-1.1) H Activated Partial Thromboplast Time 29 SEC (24-38) Sodium Level 137 mmol/L (136-145) Potassium Level 4.2 mmol/L (3.5-5.1) Chloride Level 107 mmol/L (98-107) Carbon Dioxide Level 24 mmol/L (21-32) Anion Gap 6 (6-14) Blood Urea Nitrogen 17 mg/dL (8-26) Creatinine 0.8 mg/dL (0.7-1.3) Estimated GFR (Cockcroft-Gault) 92.5 BUN/Creatinine Ratio 21 (6-20) H Glucose Level 159 mg/dL (70-99) H Calcium Level 8.7 mg/dL (8.5-10.1) Total Bilirubin 2.3 mg/dL (0.2-1.0) H Aspartate Amino Transferase (AST) 27 U/L (15-37) Alanine Aminotransferase (ALT) 23 U/L (16-63) Alkaline Phosphatase 75 U/L (46-116) Troponin I High Sensitivity 20 ng/L (4-75) Total Protein 5.9 g/dL (6.4-8.2) L Albumin 3.1 g/dL (3.4-5.0) L Albumin/Globulin Ratio 1.1 (1.0-1.7) Lactic Acid Level 1.7 mmol/L (0.4-2.0) Influenza Type A Antigen Negative (NEGATIVE) Influenza Type B Antigen Negative (NEGATIVE) SARS-CoV-2 Antigen (Rapid) Negative (NEGATIVE) Laboratory Tests 03/17/22 11:10 Laboratory Tests 03/17/22 11:10 Vital Signs: Vital Signs Date Time Temp Pulse Resp B/P (MAP) Pulse Ox O2 Delivery O2 Flow Rate FiO2 03/17/22 14:10 99.2 99.2 03/17/22 13:08 68 20 136/77 (96) 98 Room Air EKG: EKG: [] Radiology/Procedures: Radiology/Procedures: [] Course & Med Decision Making: Course & Med Decision Making Pertinent Labs and Imaging studies reviewed. (See chart for details) Patient had a recent fall a few days ago and did not have any head imaging therefore since he is on Eliquis I added a CT of his head which was unremarkable. Patient's vital signs are stable. He is able to ambulate normally in the emergency department. Surgical site shows no signs of infection. No leukocytosis fever or any other abnormal vitals. I spoke with Dr. Ralf Crump who was the surgeon storage garage attendant who states that patient is okay to go home and follow-up at this time given the report I gave him. Iris Disclaimer: Dragcourtney Disclaimer: This electronic medical record was generated, in whole or in part, using a voice recognition dictation system. Departure Departure Impression: Primary Impression: Paroxysmal A-fib Additional Impression: Nausea Disposition: HOME / SELF CARE / HOMELESS Condition: STABLE Referrals: ABDELRAHMAN BELTRÁN (PCP) Patient Instructions: Dizziness, Clxh-ba-Sfup, Nausea and Vomiting, Tgdu-yu-Koyd Additional Instructions: Please return to the emergency department if you spike a fever, have shortness of breath or loss of consciousness, or have any drainage from the incision site. Please call your heart doctor's office tomorrow and make an appointment soon as possible. SALEEM ANDERSON MD March 17, 2022 15:29
--- NOTE | 2022-03-17 15:46 | RAD ---
US ABDOMEN LIMITED: 03/17/2022 2:35 PM Indication: 81 years old Male. Elevated bilirubin. Comparison: None. TECHNIQUE: Sonographic evaluation of the right upper quadrant was performed utilizing grayscale and c olor Doppler imaging. FINDINGS: Liver: Increased echogenicity of the hepatic parenchyma in relation to the right kidney suggestive of underlying hepatocellular disease, most commonly hepatic steatosis. This limits evaluation for under lying hepatic lesions. There is hepatopedal flow within the portal venous system. Right hepatic lobe measures 16.5 cm. Biliary system: CBD measures 3.3 mm. There is no intrahepatic or extrahepatic biliary dilatation. Gallbladder: Cholecystectomy changes . Sonographic Castañeda sign: Negative Pancreas: Visualized head and uncinate process are unremarkable. Body and tail are not visualized. Right kidney: 12.6 cm x 5.6 cm x 5.9 cm No hydronephrosis. Normal echotexture without focal mass or r enal calculus. Superior pole right renal cyst measures 4.8 cm x 5.3 cm x 4.6 cm. Free fluid:None. IVC: Patent IMPRESSION: Increased echogenicity of the hepatic parenchyma in relation to the right kidney suggestive of underl john hepatocellular disease, most commonly hepatic steatosis. This limits evaluation for underlying h epatic lesions. No intrahepatic or extra hepatic biliary ductal dilatation status post cholecystectom y. Cyst in the superior pole of the right kidney measures 5.3 cm. Electronically signed by: Concepción Parham MD (03/17/2022 3:43 PM) [id number]
--- NOTE | 2022-03-18 09:06 | EKG ---
[facility] [address] [place] [address] Test Date: 2022-03-17 Test Time: 11:06:17 Pat Name: JARRET DINH Department: Room: Gender: M Ben Day Artist: : 1940 Requested By: SALEEM ANDERSON Order Number: [id number] Reading MD: Sriram Murrell MD Measurements Intervals [place] Rate: 80 P: [place]: QRS: -59 QRSD: 176 T: 98 QT: 450 QTc: 523 Interpretive Statements DEMAND V-PACING Electronically Signed On 03-18-2022 10:58:53 CDT by Sriram Murrell MD
== END 2022-03-17 16:07 | disposition home or self-care (01) ==
LOC: ER 10:53
DX: I48.0 Paroxysmal atrial fibrillation (principal); Z20.822 Contact with and (suspected) exposure to COVID-19; Z95.0 Presence of cardiac pacemaker; Z88.0 Allergy status to penicillin; Z88.2 Allergy status to sulfonamides; Z88.5 Allergy status to narcotic agent
CPT/HCPCS: 36415; 70450; 76705; 80053; 83605; 84484; 85025; 85610; 85730; 87040; 87428; 93005; 99285